=== PATIENT | female | born 1990 | race Hispanic/Latino ===

== ENCOUNTER 2016-10-04 12:04 | Emergency (ER) | payer OTHER ==
[~2016-10-04] VITALS: Ht 180.3 cm; Wt 114.7 kg
[~2016-10-04 12:04] MED LIST: BENADRYL25 MG PO; FLUOXETINE HCL10 MG PO; LEVETIRACETAM500 MG PO; METOCLOPRAM5 MG/1 M1 PO; ONDANSETRON ODT4 MG PO; PRENATAL VITAM1 EAC6 PO; PROZAC10 MG PO; REGLAN5 MG PO; ZOFRAN ODT4 MG PO; ZOFRAN ODT8 MG PO; ZOFRAN8 MG PO
[2016-10-04 12:49] LABS: ADD MIUA? YES; BILIRUBIN NEGATIVE; BLOOD SMALL; COLOR AMBER ((YELLOW)); GLUCOSE (STRIP) NEGATIVE; KETONES NEGATIVE; LEUKOCYTES LARGE; NITRITE NEGATIVE; PROTEIN (STRIP) 100; SPECIFIC GRAVITY 1.027 (1.000-1.030)
[2016-10-04 13:06] LABS: BACTERIA RARE /HPF; BUDDING YEAST 1+; CALCIUM OXALATE CRYSTALS 2+ /HPF; EPITHELIAL CELLS 2+ /HPF; MUCUS 2+ /LPF; RED BLOOD CELLS 30-40 /HPF (0-5); UCUL ADDED? NO; WHITE BLOOD CELLS 15-20 /HPF (0-5)
[2016-10-04 13:21] LABS: MCH 19.2 PG (29.0-34.0); MCHC 29.4 G/DL (30.0-36.0); MCV 65.1 FL (83-99); MEAN PLAT.VOLUME 9.4 uM^3 (9.5-12.4); PLATELET COUNT 397 K/uL (156-360); RBC DIS.WIDTH-SD 44.5 % (39-53); RED BLOOD COUNT 5.22 M/uL (3.80-5.20); WHITE BLOOD COUNT 9.2 K/uL (4.1-10.2)
[2016-10-04 13:27] LABS: CHLORIDE 108 mEq/L (99-109); POTASSIUM 3.7 mEq/L (3.7-5.4); SODIUM 137 mEq/L (136-147)
[2016-10-04 13:29] LABS: GLUCOSE 97 mg/dL (70-99)
[2016-10-04 13:30] LABS: ANION GAP 13 MEQ/L (2-14)
[2016-10-04 13:31] LABS: TOTAL BILIRUBIN 0.9 mg/dL (0.0-1.0)
[2016-10-04 13:33] LABS: ALKALINE PHOSPHATASE 92 IU/L (3-129); GFR ESTIMATE (CALCULATED) > 59 mL/min/
[2016-10-04 13:34] LABS: UREA NITROGEN (BUN) 8 mg/dL (9-23)
[2016-10-04 14:03] LABS: QUANTITATIVE HCG 24861.8 MIU/ML
[2016-10-04] MEDS ORDERED: ZOFRAN ODT4 MG PO (16:19)
[2016-10-04] MEDS ORDERED: KEFLEX500 MG PO (16:19)
[2016-10-04 16:39] VITALS: BP 128/79
== END 2016-10-04 16:40 | disposition home or self-care (01) ==
LOC: EME 12:04
DX: O23.41 Unspecified infection of urinary tract in pregnancy, first trimester (principal); O21.9 Vomiting of pregnancy, unspecified; O26.891 Other specified pregnancy related conditions, first trimester; R10.31 Right lower quadrant pain; R07.9 Chest pain, unspecified; R05 Cough; M54.9 Dorsalgia, unspecified; Z3A.01 Less than 8 weeks gestation of pregnancy
CPT/HCPCS: 71020; 76801; 80053; 81003; 84702; 85027; 93005; 99281; 99285; J2405; J7030